=== PATIENT | female | born 1950 | race Caucasian/White ===

== ENCOUNTER → 2020-08-29 | Day surgery (SDC) | payer MEDICARE ==
[~2020-08-29] MED LIST: AMLO5TAB4 PO; APIX5TAB PO; FENTANYL CITRATE/PF 50MCG/ML 2ML VIAL ONE; FENTANYL CITRATE/PF 50MCG/ML 5ML VIAL ONE; HYDR-4134 MT; LIDOCAINE HCL 2% JELLY 5ML ONE; LISI-186 MT; LISI-186 PO; LOSA100T32 MT; MIDAZOLAM HCL 2 MG/2 ML VIAL ONE; MIDAZOLAM HCL 5 MG/5 ML VIAL ONE; SOTA80TA PO; TETRACAINE/BENZOCAINE/BUTAMBEN 20 GM SPRAY MM ONE; TRIA1TAB92 PO
== END | disposition home or self-care (01) ==
LOC: CARD 08:40
PROVIDERS: ATTEND Specialist
DX: I48.20 Chronic atrial fibrillation, unspecified (principal); I08.1 Rheumatic disorders of both mitral and tricuspid valves; I10 Essential (primary) hypertension; G47.33 Obstructive sleep apnea (adult) (pediatric); E66.9 Obesity, unspecified; Z79.01 Long term (current) use of anticoagulants; Z79.899 Other long term (current) drug therapy; Z82.49 Family history of ischemic heart disease and other diseases of the circulatory system; Z90.49 Acquired absence of other specified parts of digestive tract; Z98.890 Other specified postprocedural states
CPT/HCPCS: 92960; 93005; 93312; J2250; J3010

== ENCOUNTER → 2022-10-30 | Day surgery (SDC) | payer MEDICARE, MEDICAID ==
[~2022-10-30] VITALS: Ht 157.5 cm; Wt 106.6 kg
[~2022-10-30] MED LIST changes: +ACETAMINOPHEN 325MG TABLET PO PRN; +AMLO10TA80 PO; -AMLO5TAB4 PO; +ATROPINE SULFATE 1MG/10ML SYR IV PRN; -FENTANYL CITRATE/PF 50MCG/ML 5ML VIAL ONE; +FURO20TA4 PO; +LIDOCAINE 2% 6ML GLYDO MM ONE; -LIDOCAINE HCL 2% JELLY 5ML ONE; -LISI-186 MT; -LISI-186 PO; +LISI40TA13 PO; -LOSA100T32 MT; +LOSA100T33 MT; -MIDAZOLAM HCL 2 MG/2 ML VIAL ONE; +MINO2.5T2 PO; +ONDANSETRON HCL 4MG/2ML INJ IV PRN
== END | disposition home or self-care (01) ==
LOC: CCL 08:12
PROVIDERS: ATTEND Specialist
DX: I48.20 Chronic atrial fibrillation, unspecified (principal); I10 Essential (primary) hypertension; I08.0 Rheumatic disorders of both mitral and aortic valves; Z79.899 Other long term (current) drug therapy; Z98.890 Other specified postprocedural states
CPT/HCPCS: 92960; 93325; 93312; 93005; Z7610 ×7; J3010; J2250

== ENCOUNTER → 2024-01-15 | Day surgery (SDC) | payer MEDICARE, MEDICAID ==
[~2024-01-15] VITALS: Ht 152.4 cm; Wt 100.7 kg
[~2024-01-15] MED LIST changes: -ATROPINE SULFATE 1MG/10ML SYR IV PRN; +CHOL-36 PO; +FURO-152 PO; -FURO20TA4 PO; +HEPARIN 1000 UNITS/ML 10ML ONE; -HYDR-4134 MT; +HYDROMORPHONE HCL/PF 1MG/ML INJ IV PRN; +LABETALOL 5MG/ML 4ML INJ IV PRN; -LISI40TA13 PO; -LOSA100T33 MT; +MEPERIDINE HCL/PF 25MG/ML CPJ IV PRN; +MINO10TA PO; -MINO2.5T2 PO; +PANT40TA51 PO; +SEMA2PEN SQ; -SOTA80TA PO; +SOTA80TA25 PO; -TRIA1TAB92 PO
[2024-01-15] MEDS: SODIUM CHLORIDE 0.45% 500 ML IV ONE (07:20)
== END | disposition home or self-care (01) ==
LOC: CCL 06:11
PROVIDERS: ATTEND Specialist
DX: I48.91 Unspecified atrial fibrillation (principal); E66.9 Obesity, unspecified; I08.0 Rheumatic disorders of both mitral and aortic valves; I10 Essential (primary) hypertension; Z79.01 Long term (current) use of anticoagulants; Z79.899 Other long term (current) drug therapy; Z88.8 Allergy status to other drugs, medicaments and biological substances; Z98.890 Other specified postprocedural states
CPT/HCPCS: 92960; 93312; 93005; J3010; J1644; J2250